=== PATIENT | male | born 1965 | race Caucasian/White ===

== ENCOUNTER → 2024-02-28 | Outpatient (CLI) | payer MEDICARE, MEDICAID ==
[~2024-02-28] MED LIST: AMIO200T67 PO; ASPI81TA53 PO; ATOR10TA PO; CEPH-585 PO; FEXO-236 PO; LOP12.5T PO; TEST200V33 IM; TRAM50TA2 PO
== END | disposition home or self-care (01) ==
LOC: LAB SPEC 17:03
PROVIDERS: ATTEND Physician Assistant Surgical
DX: L08.0 Pyoderma (principal)
CPT/HCPCS: 87070